=== PATIENT | female | born 1990 | race Caucasian/White ===

== ENCOUNTER 2023-09-07 18:21 | Inpatient (IN) | payer MEDICARE ==
[~2023-09-07] VITALS: Ht 175.3 cm; Wt 74.3 kg
[~2023-09-07 18:21] MED LIST: DIVA-111 PO; ESCI-8 PO; RISP3TAB77 PO
[2023-09-07 19:30] LABS: BASOPHILS % (AUTO) 0.5 % (0.0-2.0); EOSINOPHILS % (AUTO) 1.5 % (1.0-6.0); HEMOGLOBIN 13.3 g/dL (12.0-16.0); LYMPHOCYTES # (AUTO) 1.5 K/uL (1.0-4.8); LYMPHOCYTES % (AUTO) 21.2 % (22.0-44.0); MEAN CORPUSCULAR HEMOGLOBIN 32.7 pg (26.0-34.0); MEAN CORPUSCULAR VOLUME 93 fL (80-100); MONOCYTES # (AUTO) 0.5 K/uL (0.1-1.0); NEUTROPHILS # (AUTO) 4.9 K/uL (1.8-7.7); NEUTROPHILS % (AUTO) 69.8 % (40.0-70.0); PLATELET COUNT (AUTO) 257 K/uL (150-450); RED BLOOD CELL COUNT(AUTO) 4.07 MIL/uL (4.00-5.20); RED CELL DISTRIBUTION WIDTH 12.3 % (11.5-14.5)
[2023-09-07 19:39] LABS: ANION GAP 8 mmol/L (8-16); CARBON DIOXIDE 28 mmol/L (22-29); CHLORIDE 104 mmol/L (98-107); CREATININE 0.74 mg/dL (0.60-1.30); GLOMERULAR FILTR. RATE CALC > 60 mL/min (>60); GLUCOSE,RANDOM 101 mg/dL (70-110); SODIUM SERUM 140 mmol/L (136-145); UREA NITROGEN, BLOOD 19 mg/dL (7-18)
[2023-09-07 19:41] LABS: ALCOHOL, BLOOD (SERUM) < 3 mg/dL (0-10)
[2023-09-07 19:52] LABS: ALANINE AMINOTRANSFERASE 14 U/L (12-78); ALBUMIN 3.3 g/dL (3.4-5.0); ALKALINE PHOSPHATASE 82 U/L (46-116); ASPARTATE AMINOTRANSFERASE 13 U/L (15-37); BILIRUBIN,TOTAL 0.2 mg/dL (0.1-1.0); HCG,QUANTITATIVE < 1 mIU/mL (0-6); TOTAL PROTEIN, SERUM 6.3 g/dL (6.4-8.2)
[2023-09-07 23:14] LABS: VALPROIC ACID 72 mcg/mL (50-100)
[2023-09-07 23:36] LABS: LITHIUM < 0.20 mmol/L (0.60-1.20)
[2023-09-08 00:48] LABS: COVID AG,FIA SOURCE NPH
[2023-09-08 00:52] LABS: SARS-COV2 (COVID) ANTIGEN,FIA Negative (Negative)
[2023-09-08 02:40] VITALS: BP 95/62; PULSE 73; RESP 18; TEMP 98.3; O2SAT 98
[2023-09-08] MEDS: LORazepam 2 MG TABLET PO PRN (04:13)
[2023-09-08 09:29] VITALS: BP 96/68; PULSE 82; RESP 18; TEMP 97.8; O2SAT 97
[2023-09-08] MEDS ORDERED: BACITRACIN 28 GM OINTMENT TP PRN (10:30)
[2023-09-08] MEDS ORDERED: CloNIDine HCL 0.1 MG TABLET PO PRN (10:30)
[2023-09-08] MEDS ORDERED: MAG HYDROX/ALUMINUM HYD/SIMETH ES 30 ML SUSPENSION UDCUP PO PRN (10:30)
[2023-09-08] MEDS ORDERED: PETROLATUM,WHITE 28 GM JELLY TP PRN (10:30)
[2023-09-08] MEDS ORDERED: BENZOCAINE/MENTHOL LOZENGE PO PRN (10:30)
[2023-09-08] MEDS ORDERED: LOPERAMIDE HCL 2 MG CAPSULE PO PRN (10:30)
[2023-09-08] MEDS ORDERED: DOCUSATE SODIUM 100 MG CAPSULE PO PRN (10:30)
[2023-09-08] MEDS ORDERED: OMEPRAZOLE 20 MG CAPSULE PO PRN (10:30)
[2023-09-08] MEDS ORDERED: ONDANSETRON HCL 4 MG TABLET PO PRN (10:30)
[2023-09-08] MEDS ORDERED: ALBUTEROL SULFATE HFA 90 MCG/PUFF 8 GM INHALER IH PRN (10:30)
[2023-09-08] MEDS ORDERED: MAGNESIUM HYDROXIDE SUSPENSION 30 ML UDCUP PO PRN (10:30)
[2023-09-08 12:00] VITALS: BP 100/60; PULSE 82; RESP 18; TEMP 97.8
[2023-09-08] MEDS: IBUPROFEN 600 MG TABLET PO PRN (12:00)
[2023-09-08 13:00] VITALS: BP 111/69; PULSE 78; RESP 17; TEMP 98
[2023-09-08] MEDS: ESCITALOPRAM OXALATE 10 MG TABLET PO SCH (13:12)
[2023-09-08] MEDS: DIVALPROEX SODIUM 250 MG DR TABLET PO SCH (18:07)
[2023-09-08] MEDS: RisperiDONE 3 MG TABLET PO SCH (18:07)
[2023-09-08] MEDS: ZOLPIDEM TARTRATE 10 MG TABLET PO PRN (20:53)
[2023-09-08 21:34] VITALS: BP 108/75; PULSE 84; RESP 18; TEMP 98.4
[2023-09-09 10:46] LABS: APPEARANCE,URINE CLEAR (CLEAR); BILIRUBIN,URINE NEGATIVE (NEGATIVE); COLOR,URINE COLORLESS (YELLOW); GLUCOSE, URINE (UA) NEGATIVE (NEGATIVE); KETONES,URINE NEGATIVE (NEGATIVE); LEUKOCYTE ESTERASE ,URINE NEGATIVE (NEGATIVE); NITRATE,URINE NEGATIVE (NEGATIVE); OCCULT BLOOD,URINE LARGE (NEGATIVE); PROTEIN,URINE TRACE mg/dL (NEGATIVE); SPECIFIC GRAVITIY, URINE 1.012 (1.003-1.030); UROBILINOGEN,URINE <=1.0 mg/dL (<=1.0)
[2023-09-09] MEDS: MUPIROCIN CALCIUM 2% 22 GM OINTMENT NASAL SCH (10:54)
[2023-09-09 11:02] LABS: ALCOHOL, URINE DRUG SCREEN NEGATIVE (NEGATIVE); AMPHET/METH SCREEN,URINE NEGATIVE (NEGATIVE); BARBITURATE SCREEN, URINE NEGATIVE (NEGATIVE); BENZODIAZEPINES SCREEN,URINE NEGATIVE (NEGATIVE); CANNABINOID SCREEN,URINE NEGATIVE (NEGATIVE); COCAINE SCREEN,URINE NEGATIVE (NEGATIVE); METHADONE SCREEN, URINE NEGATIVE (NEGATIVE); OPIATE SCREEN,URINE NEGATIVE (NEGATIVE); PHENCYCLIDINE SCREEN,URINE NEGATIVE (NEGATIVE)
[2023-09-09 11:07] LABS: RBC,URINE 26-50 /HPF (0-2); SQUAMOUS EPITHELIAL CELL,UR Moderate /LPF (None Seen)
[2023-09-09 11:08] LABS: BACTERIA,URINE Rare /HPF (None Seen); WBC,URINE 0-2 /HPF (0-5)
[2023-09-09 12:06] VITALS: BP 126/76; PULSE 79; TEMP 97.6
[2023-09-09 13:56] VITALS: BP 125/56; PULSE 79; RESP 18; TEMP 98.3; O2SAT 98
[2023-09-09] MEDS: ACETAMINOPHEN 325 MG TABLET PO PRN (13:56)
[2023-09-09] MEDS: HALOPERIDOL 5 MG TABLET PO PRN (21:23)
[2023-09-09 22:20] VITALS: BP 103/70; PULSE 90; RESP 18; TEMP 97.5; O2SAT 98
[2023-09-09 22:44] VITALS: BP 94/58; PULSE 84; RESP 18; TEMP 97.4; O2SAT 96
[2023-09-10 08:30] VITALS: BP 91/60; PULSE 80; RESP 18; TEMP 98; O2SAT 98
[2023-09-10 10:57] VITALS: RESP 18
[2023-09-10 11:57] VITALS: RESP 18
[2023-09-10 21:55] VITALS: BP 106/75; PULSE 83; RESP 18; TEMP 97.9; O2SAT 98
[2023-09-10 22:13] VITALS: BP 106/75; PULSE 83; RESP 18; TEMP 97.9; O2SAT 98
[2023-09-10 22:58] VITALS: RESP 18
[2023-09-11 09:50] VITALS: BP 105/61; PULSE 65; RESP 18; TEMP 97.4; O2SAT 98
[2023-09-11 21:11] VITALS: BP 91/57; PULSE 65; RESP 18; TEMP 98.5; O2SAT 98
[2023-09-12 10:30] VITALS: BP 102/68; PULSE 101; RESP 18; TEMP 97.6; O2SAT 98
[2023-09-12 21:12] VITALS: BP 93/59; PULSE 93; RESP 18; TEMP 97.8; O2SAT 95
[2023-09-13 08:19] VITALS: BP 98/54; PULSE 69; RESP 16; TEMP 97.9; O2SAT 98
[2023-09-13 21:08] VITALS: BP 100/65; PULSE 98; RESP 18; TEMP 97.7; O2SAT 98
[2023-09-13 22:08] VITALS: RESP 18
[2023-09-14] VITALS (8 sets, daily range): BP systolic 100–132; BP diastolic 64–85; PULSE 80–110; RESP 17–19; TEMP 97.5–98.5; O2SAT 97–99
[2023-09-14 16:03] LABS: BASOPHILS % (AUTO) 0.3 % (0.0-2.0); EOSINOPHILS % (AUTO) 0.8 % (1.0-6.0); HEMATOCRIT 37.8 % (36-46); HEMOGLOBIN 12.9 g/dL (12.0-16.0); LYMPHOCYTES # (AUTO) 1.2 K/uL (1.0-4.8); LYMPHOCYTES % (AUTO) 20.1 % (22.0-44.0); MEAN CORPUSCULAR HEMOGLOBIN 31.8 pg (26.0-34.0); MEAN CORPUSCULAR VOLUME 94 fL (80-100); MONOCYTES # (AUTO) 0.4 K/uL (0.1-1.0); MONOCYTES % (AUTO) 7.2 % (2.0-9.0); NEUTROPHILS # (AUTO) 4.2 K/uL (1.8-7.7); NEUTROPHILS % (AUTO) 71.6 % (40.0-70.0); PLATELET COUNT (AUTO) 248 K/uL (150-450); RED BLOOD CELL COUNT(AUTO) 4.04 MIL/uL (4.00-5.20); RED CELL DISTRIBUTION WIDTH 12.3 % (11.5-14.5); WHITE BLOOD COUNT (AUTO) 5.9 K/uL (4.5-11.0)
[2023-09-14 16:16] LABS: ANION GAP 7 mmol/L (8-16); CALCIUM, TOTAL 8.8 mg/dL (8.8-10.5); CARBON DIOXIDE 30 mmol/L (22-29); CHLORIDE 104 mmol/L (98-107); GLOMERULAR FILTR. RATE CALC > 60 mL/min (>60); GLUCOSE,RANDOM 103 mg/dL (70-110); SODIUM SERUM 141 mmol/L (136-145); UREA NITROGEN, BLOOD 19 mg/dL (7-18)
[2023-09-14 16:19] LABS: ALANINE AMINOTRANSFERASE 20 U/L (12-78); ALBUMIN 3.4 g/dL (3.4-5.0); ALKALINE PHOSPHATASE 77 U/L (46-116); ASPARTATE AMINOTRANSFERASE 19 U/L (15-37); BILIRUBIN,TOTAL 0.2 mg/dL (0.1-1.0); PHOSPHORUS 3.9 mg/dL (2.5-4.9); TOTAL PROTEIN, SERUM 6.5 g/dL (6.4-8.2)
[2023-09-14] MEDS: LORazepam 2 MG/ML VIAL IM ONE (16:25)
[2023-09-15] VITALS (9 sets, daily range): BP systolic 100–118; BP diastolic 7–71; PULSE 80–104; RESP 18–19; TEMP 97.3–98.4; O2SAT 93–100
[2023-09-16] VITALS (11 sets, daily range): BP systolic 101–112; BP diastolic 65–74; PULSE 72–99; RESP 18; TEMP 97.1–98.1; O2SAT 98–99
[2023-09-16] MEDS: NICOTINE POLACRILEX 2 MG LOZENGE PO PRN (19:54)
[2023-09-16] MEDS: LURASIDONE HCL 80 MG TABLET PO SCH (20:34)
[2023-09-17] VITALS (9 sets, daily range): BP systolic 90–120; BP diastolic 63–72; PULSE 66–84; RESP 16–18; TEMP 98.2–98.4; O2SAT 97–98
[2023-09-18] VITALS (7 sets, daily range): BP systolic 97–110; BP diastolic 62–78; PULSE 85–94; RESP 17–18; TEMP 97.8–98.9; O2SAT 96–98
[2023-09-19 03:12] VITALS: BP 102/67; PULSE 88; RESP 18; TEMP 97.9; O2SAT 97
[2023-09-19 04:14] VITALS: RESP 18
[2023-09-19] MEDS: MUPIROCIN CALCIUM 2% 22 GM OINTMENT NASAL SCH (08:17)
[2023-09-19 08:32] VITALS: BP 98/66; PULSE 84; RESP 18; TEMP 98.2; O2SAT 98
[2023-09-19 09:53] VITALS: BP 98/66; PULSE 84; RESP 18; TEMP 98.2; O2SAT 98
[2023-09-19] MEDS ORDERED: LURA80TA2 PO (13:38)
[2023-09-19 14:10] VITALS: BP 106/66; PULSE 87; RESP 18; TEMP 97.1; O2SAT 98
== END 2023-09-19 16:28 | disposition home or self-care (01) | DRG 885 ==
LOC: EMS 18:25 → 3EI 09-08 01:06
PROVIDERS: ADMIT Psychiatry & Neurology Psychiatry; ATTEND Psychiatry & Neurology Psychiatry
DX: F25.1 Schizoaffective disorder, depressive type (principal); R45.851 Suicidal ideations; G47.00 Insomnia, unspecified; F12.90 Cannabis use, unspecified, uncomplicated; Z20.822 Contact with and (suspected) exposure to COVID-19; F32.A Depression, unspecified; F41.9 Anxiety disorder, unspecified; K59.00 Constipation, unspecified; F43.10 Post-traumatic stress disorder, unspecified; F12.980 Cannabis use, unspecified with anxiety disorder; Z91.048 Other nonmedicinal substance allergy status; Z88.1 Allergy status to other antibiotic agents; Z87.891 Personal history of nicotine dependence; Z79.899 Other long term (current) drug therapy
CPT/HCPCS: 70450; 80053; 80164; 80178; 80307; 81001; 83735; 84100; 84702; 85025; 87081; 99285; G0480; J2060; Q9967